=== PATIENT | male | born 1965 | race Caucasian/White ===

== ENCOUNTER → 2021-03-10 | Outpatient (CLI) | payer OTHER ==
[~2021-03-10] MED LIST: AMLO-150 PO; ERGO500017 PO; LISI40TA9 PO; OMEP-110 PO
[2021-03-10 11:58] LABS: ALANINE AMINOTRANSFERASE 50 U/L (12-78); ALBUMIN 4.3 g/dL (3.4-5.0); ANION GAP 9 mmol/L (5-15); CALCIUM 9.2 mg/dL (8.5-10.1); CHLORIDE 106 mmol/L (98-107); CREATININE 1.16 mg/dL (0.7-1.3)
[2021-03-10 12:01] LABS: ALKALINE PHOSPHATASE 74 U/L (45-117); BILIRUBIN,TOTAL 0.7 mg/dL (0.2-1.0); TOTAL PROTEIN 7.8 g/dL (6.4-8.2)
== END | disposition home or self-care (01) ==
LOC: STAR 10:40
PROVIDERS: ATTEND Internal Medicine
DX: Z01.818 Encounter for other preprocedural examination (principal); C15.5 Malignant neoplasm of lower third of esophagus
CPT/HCPCS: 36415; 80053

== ENCOUNTER 2021-03-16 08:57 | Day surgery (SDC) | payer OTHER ==
[~2021-03-16] VITALS: Ht 172.7 cm; Wt 114.9 kg
[2021-03-16 09:28] VITALS: BP 129/89
[2021-03-16] MEDS ORDERED: CHLORHEXIDINE 15 ML UDC PO ONE (09:30)
[2021-03-16] MEDS ORDERED: LACTATED RINGERS 1,000 ML IV SCH (10:00)
[2021-03-16] MEDS ORDERED: PROPOFOL 10 MG/ML, 20ML ONE ×3 (10:44→11:17)
[2021-03-16] MEDS ORDERED: MIDAZOLAM 1 MG/ML, 2ML IV PRN (11:00)
[2021-03-16] MEDS ORDERED: MEPERIDINE/PF 25MG/0.5ML IVPush PRN (11:00)
[2021-03-16] MEDS ORDERED: FENTANYL PF 100 MCG/2ML IV PRN (11:00)
[2021-03-16] MEDS ORDERED: EPHEDRINE 50 MG/ML, 1ML IVPush PRN (11:00)
[2021-03-16] MEDS ORDERED: OXYcodone 5 MG/5 ML ORAL.SOL UDC PO PRN (11:00)
[2021-03-16] MEDS ORDERED: PROMETHAZINE 25 MG/ML, 1ML IVPush PRN (11:00)
[2021-03-16] MEDS ORDERED: DIAZEPAM 5 MG/ML, 2ML IVPush PRN (11:00)
[2021-03-16] MEDS ORDERED: ACETAMINOPHEN 325 MG TABLET PO PRN (11:00)
[2021-03-16] MEDS ORDERED: hydrALAzine 20 MG/ML, 1ML IV PRN (11:00)
[2021-03-16] MEDS ORDERED: LABETALOL 5MG/ML, 20ML IV PRN (11:00)
[2021-03-16] MEDS ORDERED: ONDANSETRON 2MG/ML, 2ML IVPush PRN (11:00)
[2021-03-16] MEDS ORDERED: ALBUTEROL SULFATE 2.5 MG/3 ML NPPB PRN (11:00)
[2021-03-16] MEDS ORDERED: PROMETHAZINE 12.5 MG SUPP PR PRN (11:00)
[2021-03-16] MEDS ORDERED: DIPHENHYDRAMINE 50 MG/ML, 1ML IVPush PRN ×2 (11:00)
[2021-03-16] MEDS ORDERED: HYDROmorphone 1 MG/ML, 1ML INJ IVPush PRN (11:00)
[2021-03-16] MEDS ORDERED: PROPOFOL 50 ML ONE (11:04)
== END 2021-03-16 12:50 | disposition home or self-care (01) ==
LOC: OUT 08:57
PROVIDERS: ATTEND Internal Medicine
DX: C15.5 Malignant neoplasm of lower third of esophagus (principal); K21.9 Gastro-esophageal reflux disease without esophagitis; K62.5 Hemorrhage of anus and rectum; I10 Essential (primary) hypertension; E78.5 Hyperlipidemia, unspecified; E66.9 Obesity, unspecified; Z79.899 Other long term (current) drug therapy; Z88.0 Allergy status to penicillin; Z80.0 Family history of malignant neoplasm of digestive organs; Z84.1 Family history of disorders of kidney and ureter; Z82.3 Family history of stroke
CPT/HCPCS: 43259; J2704; J7120

== ENCOUNTER → 2021-05-26 | Outpatient (CLI) | payer OTHER | END | disposition home or self-care (01) | LOC: PETCFH 09:19 | PROVIDERS: ATTEND Thoracic Surgery (Cardiothoracic Vascular Surgery) | DX: C15.9 Malignant neoplasm of esophagus, unspecified (principal); D48.5 Neoplasm of uncertain behavior of skin; N28.1 Cyst of kidney, acquired | CPT/HCPCS: 78815; A9552 ==

== ENCOUNTER 2021-06-02 09:12 | Inpatient (IN) | payer OTHER ==
[2021-06-01 11:59] LABS: BASOPHILS % (AUTO) 1 % (0-1); EOSINOPHILS % (AUTO) 2 % (1-7); LYMPHOCYTES % (AUTO) 35 % (22-44); MEAN CORPUSCULAR HEMOGLOBIN 30.4 pg (27.5-34.5); MEAN CORPUSCULAR HGB CONC 35.6 g/dL (33.2-36.2); MEAN PLATELET VOLUME 7.4 fL (7.4-10.4); MONOCYTES % (AUTO) 8 % (2-9); NEUTROPHILS % (AUTO) 55 % (42-75); PLATELET COUNT 312 x10^3/uL (130-400); RED BLOOD COUNT 5.09 x10^6/uL (4.38-5.82); RED CELL DISTRIBUTION WIDTH 13.5 % (9.4-14.8)
[2021-06-01 12:09] LABS: ALBUMIN 3.8 g/dL (3.4-5.0); ANION GAP 3 mmol/L (5-15); CALCIUM 9.1 mg/dL (8.5-10.1); CHLORIDE 107 mmol/L (98-107)
[2021-06-01 12:12] LABS: ALANINE AMINOTRANSFERASE 54 U/L (12-78); ALKALINE PHOSPHATASE 72 U/L (45-117); BILIRUBIN,TOTAL 0.6 mg/dL (0.2-1.0); CREATININE 1.04 mg/dL (0.7-1.3); TOTAL PROTEIN 7.3 g/dL (6.4-8.2)
[~2021-06-02] VITALS: Ht 172.7 cm; Wt 120.0 kg
[~2021-06-02 09:12] MED LIST changes: +BUPIVACAINE/PF 0.5% ONE; +EPINEPHRINE 1 MG/ML, 1ML ONE; +LORA-247 PO
[2021-06-02 10:24] VITALS: BP 146/92
[2021-06-02] MEDS ORDERED: LACTATED RINGERS 1,000 ML IV SCH (10:30)
[2021-06-02] MEDS ORDERED: CHLORHEXIDINE 15 ML UDC PO ONE (10:30)
[2021-06-02] MEDS ORDERED: FENTANYL PF 250 MCG/5ML ONE ×2 (10:42→13:17)
[2021-06-02] MEDS ORDERED: MIDAZOLAM 1 MG/ML, 2ML ONE (10:42)
[2021-06-02] MEDS ORDERED: PROPOFOL 10 MG/ML, 20ML ONE (10:42)
[2021-06-02] MEDS ORDERED: ROCURONIUM 10MG/ML,5ML ONE ×3 (10:43→14:58)
[2021-06-02] MEDS ORDERED: ONDANSETRON 2MG/ML, 2ML ONE (10:43)
[2021-06-02] MEDS ORDERED: DEXAMETHASONE 4 MG/ML, 5ML ONE (10:43)
[2021-06-02] MEDS ORDERED: LIDOCAINE-MPF 2% ,5ML ONE (10:43)
[2021-06-02] MEDS ORDERED: CEFAZOLIN 1,000 MG ONE ×2 (10:46)
[2021-06-02] MEDS ORDERED: INDOCYANINE GREEN 25 MG VIAL ONE (11:38)
[2021-06-02] MEDS ORDERED: BUPIVACAINE/PF-EPI 0.5% 1:200K INFIL ONE (12:36)
[2021-06-02] MEDS ORDERED: SUGAMMADEX 200 MG/2 ML IVPush ONE (15:16)
[2021-06-02] MEDS ORDERED: FENTANYL PF 100 MCG/2ML ONE ×2 (15:40→16:16)
[2021-06-02] MEDS: FENTANYL PF 100 MCG/2ML IV PRN ×3 (15:40→16:20)
[2021-06-02] MEDS: KETOROLAC 30 MG/1 ML IVPush PRN (15:50)
[2021-06-02] MEDS ORDERED: OXYcodone 5 MG/5 ML ORAL.SOL UDC ONE (15:52)
[2021-06-02] MEDS ORDERED: KETOROLAC 30 MG/1 ML ONE (15:52)
[2021-06-02] MEDS ORDERED: hydrALAzine 20 MG/ML, 1ML IV PRN (16:00)
[2021-06-02] MEDS: LACTATED RINGERS 1,000 ML IV SCH (16:00)
[2021-06-02] MEDS ORDERED: ENALAPRILAT 1.25 MG/ML, 2ML IVPush PRN (16:00)
[2021-06-02] MEDS ORDERED: ONDANSETRON 2MG/ML, 2ML IVPush PRN ×2 (16:00)
[2021-06-02] MEDS ORDERED: METHOCARBAMOL 1,000 MG in DEXTROSE 5% 100 ML IV PRN (16:00)
[2021-06-02] MEDS ORDERED: LABETALOL 5MG/ML, 20ML IV PRN (16:00)
[2021-06-02] MEDS ORDERED: DIAZEPAM 5 MG/ML, 2ML IVPush PRN (16:00)
[2021-06-02] MEDS ORDERED: MEPERIDINE/PF 25MG/0.5ML IVPush PRN (16:00)
[2021-06-02] MEDS ORDERED: HYDROmorphone 1 MG/ML, 1ML INJ IVPush PRN (16:00)
[2021-06-02] MEDS ORDERED: PROMETHAZINE 25 MG/ML, 1ML IVPush PRN (16:00)
[2021-06-02] MEDS ORDERED: LORazepam 2 MG/ML, 1ML IVPush PRN (16:00)
[2021-06-02] MEDS ORDERED: ACETAMINOPHEN 325 MG TABLET PO PRN (16:00)
[2021-06-02] MEDS ORDERED: hydrALAzine 20 MG/ML, 1ML IVPush PRN (16:00)
[2021-06-02] MEDS ORDERED: DIPHENHYDRAMINE 50 MG/ML, 1ML IVPush PRN (16:00)
[2021-06-02] MEDS ORDERED: OXYcodone 5 MG/5 ML ORAL.SOL UDC PO PRN (16:00)
[2021-06-02] MEDS ORDERED: HYDROmorphone 2 MG/ML, 1ML ONE (16:17)
[2021-06-02] MEDS: FAMOTIDINE 20 MG/2 ML IVPush SCH (18:31)
[2021-06-02 18:35] VITALS: BP 111/74
[2021-06-02 18:38] VITALS: BP 111/74
[2021-06-02] MEDS: morphine SULFATE 10 MG/ML, 1ML IVPush PRN (21:16)
[2021-06-03 01:27] VITALS: BP 133/80
[2021-06-03] MEDS: FAMOTIDINE 20 MG/2 ML IVPush SCH ×2 (03:11→18:03)
[2021-06-03] MEDS: LACTATED RINGERS 1,000 ML IV SCH ×3 (03:12→22:53)
[2021-06-03 04:02] VITALS: BP 156/80
[2021-06-03] MEDS: morphine SULFATE 10 MG/ML, 1ML IVPush PRN ×4 (04:55→23:14)
[2021-06-03 05:54] LABS: BASOPHILS % (AUTO) 1 % (0-1); EOSINOPHILS % (AUTO) 0 % (1-7); LYMPHOCYTES % (AUTO) 14 % (22-44); MEAN CORPUSCULAR HEMOGLOBIN 30.4 pg (27.5-34.5); MEAN CORPUSCULAR HGB CONC 35.9 g/dL (33.2-36.2); MEAN PLATELET VOLUME 7.3 fL (7.4-10.4); MONOCYTES % (AUTO) 9 % (2-9); NEUTROPHILS % (AUTO) 76 % (42-75); PLATELET COUNT 357 x10^3/uL (130-400); RED BLOOD COUNT 5.08 x10^6/uL (4.38-5.82); RED CELL DISTRIBUTION WIDTH 13.6 % (9.4-14.8)
[2021-06-03 06:05] LABS: CHLORIDE 104 mmol/L (98-107)
[2021-06-03 06:28] LABS: ANION GAP 8 mmol/L (5-15); CALCIUM 8.6 mg/dL (8.5-10.1); CREATININE 1.25 mg/dL (0.7-1.3); PREALBUMIN 32.2 mg/dL (20.0-40.0)
[2021-06-03 08:34] VITALS: BP 141/87
[2021-06-03] MEDS: KETOROLAC 30 MG/1 ML IVPush PRN ×2 (08:59→18:03)
[2021-06-03] MEDS: ENOXAPARIN 40 MG/0.4 ML SQ SCH (08:59)
[2021-06-03] MEDS: HYDROcodone/APAP 7.5-325MG/15ML UDC JT PRN ×3 (11:34→22:52)
[2021-06-03 13:23] VITALS: BP 178/75
[2021-06-03 20:03] VITALS: BP 128/78
[2021-06-04] MEDS: KETOROLAC 30 MG/1 ML IVPush PRN ×3 (00:07→21:09)
[2021-06-04 00:16] VITALS: BP 132/77
[2021-06-04] MEDS: FAMOTIDINE 20 MG/2 ML IVPush SCH ×2 (06:10→18:24)
[2021-06-04] MEDS: LACTATED RINGERS 1,000 ML IV SCH ×2 (06:11→17:09)
[2021-06-04] MEDS: HYDROcodone/APAP 7.5-325MG/15ML UDC JT PRN ×4 (06:11→18:24)
[2021-06-04] MEDS: ENOXAPARIN 40 MG/0.4 ML SQ SCH (08:39)
[2021-06-04] MEDS ORDERED: OMNIPAQUE 350 MG/ML, 150 ML BOTTLE ONE (09:38)
[2021-06-04 09:59] VITALS: BP 128/82
[2021-06-04 15:59] VITALS: BP 128/86
[2021-06-04 19:15] VITALS: BP 107/64
[2021-06-04] MEDS: DIPHENHYDRAMINE 50 MG/ML, 1ML IVPush PRN (21:09)
[2021-06-05 01:42] VITALS: BP 111/72
[2021-06-05] MEDS: LACTATED RINGERS 1,000 ML IV SCH (04:44)
[2021-06-05] MEDS: FAMOTIDINE 20 MG/2 ML IVPush SCH ×2 (06:09→18:32)
[2021-06-05] MEDS: KETOROLAC 30 MG/1 ML IVPush PRN ×3 (07:00→20:27)
[2021-06-05 07:05] VITALS: BP_SYST 138; BP_SYST 160; BP_DIAS 82; BP_DIAS 90
[2021-06-05] MEDS: ENOXAPARIN 40 MG/0.4 ML SQ SCH (09:28)
[2021-06-05 13:05] VITALS: BP 148/89
[2021-06-05 20:28] VITALS: BP 154/89
[2021-06-06] MEDS: DIPHENHYDRAMINE 50 MG/ML, 1ML IVPush PRN (02:34)
[2021-06-06] MEDS: KETOROLAC 30 MG/1 ML IVPush PRN (02:34)
[2021-06-06 02:46] VITALS: BP_SYST 143; BP_SYST 173; BP_DIAS 112; BP_DIAS 98
[2021-06-06 02:55] VITALS: BP 173/112
[2021-06-06 04:04] VITALS: BP 152/82
[2021-06-06] MEDS: FAMOTIDINE 20 MG/2 ML IVPush SCH (06:06)
[2021-06-06 06:50] VITALS: BP 131/86
[2021-06-06] MEDS ORDERED: ACET-1600 PO (07:46)
[2021-06-06] MEDS ORDERED: IBUP-1223 PO (07:46)
[2021-06-06] MEDS ORDERED: OXYC5TAB98 PO (07:46)
[2021-06-06] MEDS ORDERED: ACETAMINOPHEN 500 MG TABLET PO SCH (08:00)
[2021-06-06] MEDS ORDERED: IBUPROFEN 800 MG TABLET PO SCH (08:00)
[2021-06-06] MEDS ORDERED: OXYcodone IR 5MG TABLET PO PRN (08:00)
[2021-06-06] MEDS: ENOXAPARIN 40 MG/0.4 ML SQ SCH (08:46)
== END 2021-06-06 11:26 | disposition home or self-care (01) | DRG 375 ==
LOC: ORIP 09:12 → 4NE 17:27
PROVIDERS: ADMIT Thoracic Surgery (Cardiothoracic Vascular Surgery); ATTEND Thoracic Surgery (Cardiothoracic Vascular Surgery)
PROC: 0DB68ZX Excision of Stomach, Via Natural or Artificial Opening Endoscopic, Diagnostic (ICD-10-PCS; 2021-06-02)
PROC: 0DHA3UZ Insertion of Feeding Device into Jejunum, Percutaneous Approach (ICD-10-PCS; 2021-06-02)
PROC: 0DB38ZZ Excision of Lower Esophagus, Via Natural or Artificial Opening Endoscopic (ICD-10-PCS; principal; 2021-06-02 11:30)
DX: C15.9 Malignant neoplasm of esophagus, unspecified (principal); E46 Unspecified protein-calorie malnutrition; Z68.41 Body mass index [BMI] 40.0-44.9, adult; E66.01 Morbid (severe) obesity due to excess calories; Z20.822 Contact with and (suspected) exposure to COVID-19
CPT/HCPCS: 36415; 74240; J3490; S0020; 71045; 80048; 80053; 84100; 84134; 85025; 86850; 86900; 88305; 88309; 93005; B4087; G0378; J0171; J0690; J1100; J1650; J1885; J2250; J2405; J2704; J3010; Q9967; U0005; J1200; J2270; J2800; J7120; U0003

== ENCOUNTER 2021-07-09 15:45 | Inpatient (IN) | payer OTHER ==
[~2021-07-09] VITALS: Ht 172.7 cm; Wt 109.0 kg
[~2021-07-09 15:45] MED LIST changes: +ACET-1600 PO; -BUPIVACAINE/PF 0.5% ONE; -EPINEPHRINE 1 MG/ML, 1ML ONE; +IBUP-1223 PO; +OXYC5TAB98 PO
--- NOTE | 2021-07-09 17:30 | NUR ---
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
[2021-07-09] MEDS ORDERED: MORPHINE SULFATE 4 MG/ML, 1ML ONE ×2 (18:49→20:19)
[2021-07-09] MEDS ORDERED: ONDANSETRON 2MG/ML, 2ML ONE ×2 (18:49→21:28)
[2021-07-09] MEDS: MORPHINE SULFATE 4 MG/ML, 1ML IVPush PRN ×2 (18:52→20:22)
--- NOTE | 2021-07-09 18:54 | NUR ---
TASK RN: PT MEDICATED PER MAR, NAD, VSS, Patient is resting comfortably in bed. Bed in lowest, rails engaged, call light on lap. WCTM.
[2021-07-09] MEDS ORDERED: ONDANSETRON 2MG/ML, 2ML IVPush ONE (19:00)
[2021-07-09 20:28] VITALS: BP 127/77
[2021-07-09] MEDS ORDERED: PROMETHAZINE 25 MG/ML, 1ML IVPush PRN (20:30)
[2021-07-09] MEDS ORDERED: hydrALAzine 20 MG/ML, 1ML IV PRN (20:30)
[2021-07-09] MEDS ORDERED: HYDROmorphone 1 MG/ML, 1ML INJ IVPush PRN (20:30)
[2021-07-09] MEDS ORDERED: ONDANSETRON 2MG/ML, 2ML IVPush PRN (20:30)
[2021-07-09] MEDS ORDERED: FENTANYL PF 100 MCG/2ML IV PRN (20:30)
[2021-07-09] MEDS ORDERED: OXYcodone 5 MG/5 ML ORAL.SOL UDC PO PRN (20:30)
[2021-07-09] MEDS ORDERED: LABETALOL 5MG/ML, 20ML IV PRN (20:30)
[2021-07-09] MEDS ORDERED: morphine SULFATE 10 MG/ML, 1ML IVPush PRN ×2 (20:30→22:00)
[2021-07-09] MEDS ORDERED: FENTANYL PF 100 MCG/2ML ONE (20:52)
[2021-07-09] MEDS ORDERED: PROPOFOL 10 MG/ML, 20ML ONE (20:56)
[2021-07-09] MEDS ORDERED: SUCCINYLCHOLINE 20 MG/ML, 10ML ONE (20:57)
--- NOTE | 2021-07-09 20:57 | NUR ---
PATIENT DENIED WANTING BLADDER SCAN BEING DONE
[2021-07-09] MEDS ORDERED: DEXAMETHASONE 4 MG/ML, 1ML ONE (21:15)
[2021-07-09] MEDS ORDERED: ROCURONIUM 10 MG/ML,10ML ONE (21:15)
[2021-07-09] MEDS ORDERED: DEXAMETHASONE 4 MG/ML, 5ML ONE (21:28)
[2021-07-09] MEDS ORDERED: ACETAMINOPHEN 325 MG TABLET PO PRN (22:00)
[2021-07-09] MEDS ORDERED: MELATONIN 5 MG TABLET PO PRN (22:00)
[2021-07-09] MEDS ORDERED: DOCUSATE 100 MG CAPSULE PO PRN (22:00)
[2021-07-09] MEDS ORDERED: LACTATED RINGERS 1,000 ML IV SCH (23:00)
== END 2021-07-09 23:58 | disposition home or self-care (01) | DRG 395 ==
LOC: ED 19:01 → EDIP 20:08 → 4NW 22:47
PROVIDERS: ADMIT Internal Medicine; ATTEND Internal Medicine
PROC: 0DJ08ZZ Inspection of Upper Intestinal Tract, Via Natural or Artificial Opening Endoscopic (ICD-10-PCS; principal; 2021-07-09 20:00)
DX: T18.128A Food in esophagus causing other injury, initial encounter (principal); I10 Essential (primary) hypertension; Z20.822 Contact with and (suspected) exposure to COVID-19; Z85.01 Personal history of malignant neoplasm of esophagus; Z87.891 Personal history of nicotine dependence; Z93.4 Other artificial openings of gastrointestinal tract status; Y92.89 Other specified places as the place of occurrence of the external cause; Z88.0 Allergy status to penicillin; Z88.8 Allergy status to other drugs, medicaments and biological substances
CPT/HCPCS: 74220; 87635; 96374; 96375; 96376; 99291; G0378; J1100; J2405; J2704; J3010; J0330; J2270